=== PATIENT | female | born 1995 | race Caucasian/White ===

== ENCOUNTER 2018-10-15 06:53 | Emergency (ER) | payer BC, OTHER ==
[2018-10-15] MEDS ORDERED: Sodium Chloride 0.9% 10 ML Syringe FLUSH PRN (07:27)
[2018-10-15] MEDS ORDERED: Metoprolol Tartrate 25 MG Tab PO ONE (07:27)
[2018-10-15] MEDS ORDERED: Sodium Chloride 0.9% 1,000 ML IV SCH (07:30)
--- NOTE | 2018-10-15 08:53 | EDM.PDOC ---
ED HPI GENERAL MEDICAL PROBLEM - General Chief Complaint: Chest Pain Stated Complaint: CHEST PAIN Time Seen by Provider: 10/15/18 07:09 Source of Information: Reports: Patient, Family History Limitations: Reports: No Limitations - History of Present Illness INITIAL COMMENTS - FREE TEXT/NARRATIVE: The patient presents with chest pain. She was at work last night when this started. She says the pain is sharp and it is in the entire chest. She also feels like her heart is racing. She normally has a heart rate that is a little fast in the 100s to 110s. She has had this all worked up and no cause has been found. She has no swelling or pain in her legs. She is on control but she does not smoke. Onset: Gradual Duration: Hour(s): Location: Reports: Chest Quality: Reports: Sharp Severity: Moderate Improves with: Reports: None Worsens with: Reports: None Associated Symptoms: Reports: Chest Pain. Denies: Cough, Fever/Chills, Headaches, Nausea/Vomiting, Shortness of Breath Chest Pain Score (Numeric/FACES): 7 - Related Data Allergies Allergy/AdvReac Type Severity Reaction Status Date / Time azithromycin [From Zithromax] Allergy Hives Verified 10/15/18 07:22 sulfamethoxazole Allergy Cannot Verified 10/15/18 07:22 [From Bactrim] Remember trimethoprim [From Bactrim] Allergy Cannot Verified 10/15/18 07:22 Remember Home Meds: Home Meds Control 1 tab PO DAILY 10/15/18 [History] Levothyroxine Sodium [Synthroid] 125 mcg PO DAILY 10/15/18 [History] Past Medical History Cardiovascular History: Reports: Other (See Below) Other Cardiovascular History: sinus tachicadia Endocrine/Metabolic History: Reports: Hypothyroidism - Past Surgical History GI Surgical History: Reports: Cholecystectomy Social & Family History - Tobacco Use Smoking Status *Q: Never Smoker - Caffeine Use Caffeine Use: Reports: Coffee - Recreational Drug Use Recreational Drug Use: No ED ROS GENERAL - Review of Systems Review Of Systems: See Below Constitutional: Reports: No Symptoms HEENT: Reports: No Symptoms Respiratory: Reports: No Symptoms Cardiovascular: Reports: Chest Pain Endocrine: Reports: No Symptoms GI/Abdominal: Reports: No Symptoms : Reports: No Symptoms Musculoskeletal: Reports: No Symptoms ED EXAM, GENERAL - Physical Exam Exam: See Below Exam Limited By: No Limitations General Appearance: Alert, No Apparent Distress Ears: Normal External Exam Nose: Normal Inspection Head: Atraumatic, Normocephalic Neck: Normal Inspection Respiratory/Chest: No Respiratory Distress, Lungs Clear, Normal Breath Sounds Cardiovascular: Regular Rate, Rhythm, No Edema, No Murmur GI/Abdominal: Soft, Non-Tender, No Organomegaly, No Mass Back Exam: Normal Inspection Extremities: Normal Inspection Neurological: Alert, Oriented, No Motor/Sensory Deficits EKG INTERPRETATION EKG Date: 10/15/18 Time: 07:10 Rhythm: Other (sinus tachycardia) Rate (Beats/Min): 136 [place]: Normal P-Wave: Present QRS: Normal ST-T: Normal QT: Normal Course - Vital Signs Last Recorded V/S: Last Vital Signs Temp 99.0 F 10/15/18 07:13 Pulse 92 10/15/18 08:33 Resp 16 10/15/18 08:33 BP 93/75 10/15/18 08:33 Pulse Ox 98 10/15/18 08:33 - Orders/Labs/Meds Orders: Active Orders 24 hr Category Date Time Status Cardiac Monitoring [RC] . DIRECTED Care 10/15/18 07:27 Active EKG Documentation Completion [RC] STAT Care 10/15/18 07:28 Active Peripheral IV Care [RC] . DIRECTED Care 10/15/18 07:28 Active Chest 1V Frontal [CR] Stat Exams 10/15/18 07:29 Taken TSH [CHEM] Stat Lab 10/15/18 07:30 Received Sodium Chloride 0.9% [Normal Saline] 1,000 ml Med 10/15/18 07:30 Active IV .BOLUS Sodium Chloride 0.9% [Saline Flush] Med 10/15/18 07:27 Active 10 ml FLUSH ASDIRECTED PRN Peripheral IV Insertion Adult [OM.PC] Stat Oth 10/15/18 07:27 Ordered Medication Orders Sodium Chloride (Normal Saline) 1,000 mls @ 1,000 mls/hr IV .BOLUS ADAN Last Admin: 10/15/18 07:41 Dose: 1,000 mls/hr Sodium Chloride (Saline Flush) 10 ml FLUSH ASDIRECTED PRN PRN Reason: Keep Vein Open Last Admin: 10/15/18 07:42 Dose: 10 ml Labs: Laboratory Tests 10/15/18 10/15/18 10/15/18 Range/Units 07:30 07:30 07:30 WBC 6.20 (3.98-10.04) K/mm3 RBC 4.40 (3.98-5.22) M/mm3 Hgb 13.3 (11.2-15.7) gm/L Hct 41.3 (34.1-44.9) % MCV 93.9 (79.4-94.8) fl MCH 30.2 (25.6-32.2) pg MCHC 32.2 (32.2-35.5) g/dl RDW Std Deviation 44.7 (36.4-46.3) fL Plt Count 281 (182-369) K/mm3 MPV 9.7 (9.4-12.3) fl Neut % (Auto) 66.4 (34.0-71.1) % Lymph % (Auto) 25.3 (19.3-51.7) % Ness % (Auto) 7.3 (4.7-12.5) % Eos % (Auto) 0.3 L (0.7-5.8) Baso % (Auto) 0.5 (0.1-1.2) % Neut # (Auto) 4.12 (1.56-6.13) K/mm3 Lymph # (Auto) 1.57 (1.18-3.74) K/mm3 Ness # (Auto) 0.45 H (0.24-0.36) K/mm3 Eos # (Auto) 0.02 L (0.04-0.36) K/mm3 Baso # (Auto) 0.03 (0.01-0.08) K/mm3 D-Dimer, Quantitative < 0.19 L (0.19-0.50) mg/L Sodium 140 (136-145) mEq/L Potassium 3.5 (3.5-5.1) mEq/L Chloride 103 (98-107) mEq/L Carbon Dioxide 24 (21-32) mEq/L Anion Gap 16.5 H (5-15) BUN 14 (7-18) mg/dL Creatinine 0.9 (0.55-1.02) mg/dL Est Cr Clr Drug Dosing 76.89 mL/min Estimated GFR (MDRD) > 60 (>60) mL/min BUN/Creatinine Ratio 15.6 (14-18) Glucose 98 (74-106) mg/dL Calcium 9.0 (8.5-10.1) mg/dL Total Bilirubin 0.4 (0.2-1.0) mg/dL AST 19 (15-37) U/L ALT 33 (14-59) U/L Alkaline Phosphatase 45 L (46-116) U/L Troponin I < 0.017 (0.00-0.056) ng/mL Total Protein 8.0 (6.4-8.2) g/dl Albumin 4.1 (3.4-5.0) g/dl Globulin 3.9 gm/dL Albumin/Globulin Ratio 1.1 (1-2) HCG, Qual (NEGATIVE) 10/15/18 Range/Units 07:30 WBC (3.98-10.04) K/mm3 RBC (3.98-5.22) M/mm3 Hgb (11.2-15.7) gm/L Hct (34.1-44.9) % MCV (79.4-94.8) fl MCH (25.6-32.2) pg MCHC (32.2-35.5) g/dl RDW Std Deviation (36.4-46.3) fL Plt Count (182-369) K/mm3 MPV (9.4-12.3) fl Neut % (Auto) (34.0-71.1) % Lymph % (Auto) (19.3-51.7) % Ness % (Auto) (4.7-12.5) % Eos % (Auto) (0.7-5.8) Baso % (Auto) (0.1-1.2) % Neut # (Auto) (1.56-6.13) K/mm3 Lymph # (Auto) (1.18-3.74) K/mm3 Ness # (Auto) (0.24-0.36) K/mm3 Eos # (Auto) (0.04-0.36) K/mm3 Baso # (Auto) (0.01-0.08) K/mm3 D-Dimer, Quantitative (0.19-0.50) mg/L Sodium (136-145) mEq/L Potassium (3.5-5.1) mEq/L Chloride (98-107) mEq/L Carbon Dioxide (21-32) mEq/L Anion Gap (5-15) BUN (7-18) mg/dL Creatinine (0.55-1.02) mg/dL Est Cr Clr Drug Dosing mL/min Estimated GFR (MDRD) (>60) mL/min BUN/Creatinine Ratio (14-18) Glucose (74-106) mg/dL Calcium (8.5-10.1) mg/dL Total Bilirubin (0.2-1.0) mg/dL AST (15-37) U/L ALT (14-59) U/L Alkaline Phosphatase (46-116) U/L Troponin I (0.00-0.056) ng/mL Total Protein (6.4-8.2) g/dl Albumin (3.4-5.0) g/dl Globulin gm/dL Albumin/Globulin Ratio (1-2) HCG, Qual Negative (NEGATIVE) Meds: Medications Generic Name Dose Route Start Last Admin Trade Name Freq PRN Reason Stop Dose Admin Sodium Chloride 1,000 mls @ 1,000 mls/hr 10/15/18 07:30 10/15/18 07:41 Normal Saline IV 1,000 mls/hr .BOLUS ADAN Administration Sodium Chloride 10 ml 10/15/18 07:27 10/15/18 07:42 Saline Flush FLUSH 10 ml ASDIRECTED PRN Administration Keep Vein Open Discontinued Medications Generic Name Dose Route Start Last Admin Trade Name Freq PRN Reason Stop Dose Admin Metoprolol Tartrate 50 mg 10/15/18 07:27 10/15/18 07:41 Lopressor PO 10/15/18 07:28 50 mg ONETIME ONE Administration - Re-Assessments/Exams Free Text/Narrative Re-Assessment/Exam: 10/15/18 08:50 I ordered an IV NS 1L bolus, EKG, CXR, labs and metoprolol 50mg by mouth. Her EKG shows a sinus tachycardia with no acute changes. Her CXR looks good. Her CBC looks good. Her anion gap was slightly elevated at 16.5. Her D-dimer was negative. Her troponin was negative. Her HCG was negative. Her heart rate is down and she is feeling better. I have added a TSH. I will send her home and call her if it is abnormal. Departure - Departure Time of Disposition: 09:15 Disposition: Home, Self-Care 01 Condition: Good Clinical Impression: Sinus tachycardia, Pleurisy Referrals: Chey Mcfarland MD [Primary Care Provider] - 1 Week Forms: ED Department Discharge, ED Return to Work/School Form Additional Instructions: Take motrin or aleve for pain. Drink plenty of fluids. Get some rest today. Please return if you are worse. - My Orders Last 24 Hours: My Active Orders 10/15/18 07:27 Cardiac Monitoring [RC] . DIRECTED Sodium Chloride 0.9% [Saline Flush] 10 ml FLUSH ASDIRECTED PRN Peripheral IV Insertion Adult [OM.PC] Stat 10/15/18 07:28 EKG Documentation Completion [RC] STAT Peripheral IV Care [RC] . DIRECTED 10/15/18 07:29 Chest 1V Frontal [CR] Stat 10/15/18 07:30 TSH [CHEM] Stat Sodium Chloride 0.9% [Normal Saline] 1,000 ml IV .BOLUS - Assessment/Plan Last 24 Hours: My Active Orders 10/15/18 07:27 Cardiac Monitoring [RC] . DIRECTED Sodium Chloride 0.9% [Saline Flush] 10 ml FLUSH ASDIRECTED PRN Peripheral IV Insertion Adult [OM.PC] Stat 10/15/18 07:28 EKG Documentation Completion [RC] STAT Peripheral IV Care [RC] . DIRECTED 10/15/18 07:29 Chest 1V Frontal [CR] Stat 10/15/18 07:30 TSH [CHEM] Stat Sodium Chloride 0.9% [Normal Saline] 1,000 ml IV .BOLUS
--- NOTE | 2018-10-15 09:52 | CR ---
Chest: Portable view of the chest was obtained. Comparison: No previous chest x-ray. Heart size and mediastinum are normal. Lungs are clear. Bony structures appear unremarkable. Impression 1. Nothing acute is appreciated on portable chest x-ray. Diagnostic code #1
== END 2018-10-15 09:46 | disposition home or self-care (01) ==
LOC: JD.ED 06:53
DX: R09.1 Pleurisy (principal); R00.0 Tachycardia, unspecified; E03.9 Hypothyroidism, unspecified; Z79.899 Other long term (current) drug therapy; Z88.1 Allergy status to other antibiotic agents; Z88.2 Allergy status to sulfonamides
CPT/HCPCS: 36415; 71045; 80053; 84443; 84484; 84703; 85025; 85379; 93005; 96360; 99285; A9270; J7040; 93010; 99284

== ENCOUNTER 2021-07-06 13:09 | Emergency (ER) | payer OTHER, BC ==
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
== END 2021-07-06 15:43 | disposition home or self-care (01) ==
LOC: JD.ED 13:09
DX: S39.012A Strain of muscle, fascia and tendon of lower back, initial encounter (principal); E03.9 Hypothyroidism, unspecified; Z79.899 Other long term (current) drug therapy; V49.49XA Driver injured in collision with other motor vehicles in traffic accident, initial encounter; Y92.410 Unspecified street and highway as the place of occurrence of the external cause
CPT/HCPCS: 99283

== ENCOUNTER 2021-07-08 16:12 | Emergency (ER) | payer BC ==
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
[2021-07-08] MEDS ORDERED: Ketorolac 30 MG/ML SDV IM ONE (18:09)
[2021-07-08] MEDS ORDERED: Orphenadrine 100 MG Tab.ER PO ONE (18:09)
--- NOTE | 2021-07-09 05:54 | CR ---
Lumbar spine: AP, lateral and coned-down lateral views centered to the lumbosacral junction were obtained. Comparison: No prior lumbar spine imaging is available. Vertebral body heights and disc spaces are maintained. Minimal scoliosis is noted. Pedicles are intact. Visualized transverse and spinous processes are intact. No subluxation or fracture is seen. Prior cholecystectomy is noted. Impression: 1. Minimal scoliosis. Prior cholecystectomy. 2. Three-view lumbar spine study is otherwise unremarkable. Diagnostic code #2
== END 2021-07-08 18:55 | disposition home or self-care (01) ==
LOC: JD.ED 16:12
DX: M54.41 Lumbago with sciatica, right side (principal); M54.42 Lumbago with sciatica, left side; E03.9 Hypothyroidism, unspecified; Z88.1 Allergy status to other antibiotic agents; Z79.899 Other long term (current) drug therapy
CPT/HCPCS: 72100; 96372; 99284; A9270; J1885